=== PATIENT | female | born 1975 | race Asian ===

== ENCOUNTER 2019-05-05 10:38 | Emergency (ER) | payer BC ==
[2019-05-05 11:28] VITALS: BP 108/73; PULSE 65
[2019-05-05] MEDS ORDERED: Ondansetron 4 MG Tab.DIS PO ONE (12:25)
--- NOTE | 2019-05-05 12:41 | EDM.PDOC ---
ED HPI GENERAL MEDICAL PROBLEM - General Chief Complaint: General Stated Complaint: NAUSEA/DIZZINESS Time Seen by Provider: 05/05/19 12:08 Source of Information: Reports: Patient, RN Notes Reviewed - History of Present Illness INITIAL COMMENTS - FREE TEXT/NARRATIVE: cough, rich, scratch throat for about 5 days. Has had some nausea and dizziness. Not getting better. No fever, vomiting or difficulty breathing. Treatments REFUGE WORKER: Reports: Other (see below) Other Treatments REFUGE WORKER: mucinex - Related Data Allergies Allergy/AdvReac Type Severity Reaction Status Date / Time No Known Allergies Allergy Verified 05/05/19 11:21 Home Meds: Home Meds Ondansetron [Zofran ODT] 4 mg PO Q8HR PRN #6 tab.dis 05/05/19 [Rx] Past Medical History Gastrointestinal History: Reports: GERD Social & Family History - Tobacco Use Smoking Status *Q: Never Smoker - Caffeine Use Caffeine Use: Reports: Coffee - Recreational Drug Use Recreational Drug Use: No ED ROS GENERAL - Review of Systems Review Of Systems: See Below Constitutional: Reports: Chills. Denies: Fever HEENT: Reports: Rhinitis, Throat Pain. Denies: Ear Discharge, Ear Pain Respiratory: Reports: Cough. Denies: Shortness of Breath, Sputum Cardiovascular: Denies: Chest Pain GI/Abdominal: Reports: Nausea. Denies: Abdominal Pain, Diarrhea, Vomiting Musculoskeletal: Denies: Joint Pain Skin: Denies: Rash Neurological: Reports: Dizziness ED EXAM, GENERAL - Physical Exam Exam: See Below General Appearance: Alert, No Apparent Distress Eye Exam: Bilateral Eye: PERRL Ears: Normal External Exam, Normal Canal, Normal TMs Nose: Normal Inspection Throat/Mouth: Normal Inspection, Normal Oropharynx Head: No: Facial Swelling Neck: Supple, Full Range of Motion. No: Lymphadenopathy (L), Lymphadenopathy (R ) Respiratory/Chest: No Respiratory Distress, Lungs Clear, Normal Breath Sounds Cardiovascular: Regular Rate, Rhythm GI/Abdominal: Non-Tender Extremities: Normal Inspection, Normal Range of Motion Skin Exam: Warm, Normal Color, No Rash Course - Vital Signs Last Recorded V/S: Last Vital Signs Temp 98.5 F 05/05/19 11:25 Pulse 65 05/05/19 11:25 Resp 20 05/05/19 11:25 BP 108/73 05/05/19 11:25 Pulse Ox 96 05/05/19 11:25 - Orders/Labs/Meds Meds: Medications Discontinued Medications Generic Name Dose Route Start Last Admin Trade Name Freq PRN Reason Stop Dose Admin Ondansetron HCl 4 mg 05/05/19 12:25 05/05/19 12:49 Zofran Odt PO 05/05/19 12:26 4 mg ONETIME ONE Administration Departure - Departure Time of Disposition: 12:38 Disposition: Home, Self-Care 01 Condition: Fair Clinical Impression: Viral upper respiratory illness - Discharge Information Prescriptions: Ondansetron [Zofran ODT] 4 mg PO Q8HR PRN #6 tab.dis PRN Reason: Nausea/Vomiting Instructions: Upper Respiratory Infection, Adult, [id number] Referrals: Aria Harris ASSISTANT DESIGNER [Primary Care Provider] - Forms: ED Department Discharge Additional Instructions: vaporizer or steam as needed. Tylenol q 6 to 8 hr as needed for discomfort, zofran 4 mg ODT if needed for further nausea or vomiting. Cough/decongestant medication as needed. Follow up clinic if not much better within 3 to 5 days as expected.
== END 2019-05-05 13:10 | disposition home or self-care (01) ==
LOC: JD.ED 10:38
DX: J39.9 Disease of upper respiratory tract, unspecified (principal); B97.89 Other viral agents as the cause of diseases classified elsewhere
CPT/HCPCS: 99283; A9270